=== PATIENT | female | born 1975 | race Caucasian/White ===

== ENCOUNTER 2020-07-03 17:49 | Emergency (ER) | payer OTHER ==
[~2020-07-03] VITALS: Ht 167.6 cm; Wt 93.0 kg
[~2020-07-03 17:49] MED LIST: BENADRYL25 MG PO; CELECOXIB200 MG PO; CELEXA40 MG PO; GABAPENTIN800 MG PO; GEODON80 MG NG; HYDROCODON-ACE1 EA11 PO; IBUPROFEN800 MG PO; PROZAC20 MG PO; TRAZODONE HCL50 MG PO
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
[2020-07-03] MEDS ORDERED: DERMACINRX5000 UNIT PO (18:43)
[2020-07-03] MEDS ORDERED: ROBAXIN-750750 MG (18:44)
[2020-07-03] MEDS ORDERED: ADVIL LIQUI-GE200 MG PO (18:44)
== END 2020-07-03 22:09 | disposition home or self-care (01) ==
LOC: ED 17:49
DX: F41.9 Anxiety disorder, unspecified (principal); Z87.891 Personal history of nicotine dependence; Z88.5 Allergy status to narcotic agent; Z79.899 Other long term (current) drug therapy
CPT/HCPCS: 71045; 80053; 81001; 85025; 96374; 96375; 99284-25; J1200; J1885; J2405; J3486; J7030